=== PATIENT | male | born 1975 | race Caucasian/White ===

== ENCOUNTER 2021-01-29 10:01 | Emergency (ER) | payer MEDICARE, MEDICAID ==
[2021-01-29] MEDS ORDERED: diphenhydrAMINE 50 MG/ML SDV IVPUSH ONE (10:19)
[2021-01-29] MEDS ORDERED: methylPREDNISolone Sodium Succinate 125 MG/2 ML SDV IVPUSH ONE (10:19)
--- NOTE | 2021-01-29 10:27 | EDM.PDOC ---
ED HPI GENERAL MEDICAL PROBLEM - General Stated Complaint: CHEST PAIN Time Seen by Provider: 01/29/21 10:05 Source of Information: Reports: Patient History Limitations: Reports: No Limitations - History of Present Illness INITIAL COMMENTS - FREE TEXT/NARRATIVE: c/o sob and cp and tingling and hyperventilation pt states he slept poorly last night, as is usual for him. He did knee exercises in bed for his L knee surgery. He was going to get up when he felt sob, anxious, took several DPs, felt sob and then he didn't. Palms and soles were sweaty, he was lightheaded. He did not report cp to me altho then acknowledged he had some cp that is now almost gone. he said he just wanted his gfriend to give him a hug, that he calmed down when EMS arrived onset 1h [employer], EMS gave him ASA and NTG lives in [place] since Aug with gfriend and 3 of his 5 children, not working, gfriend at bedside, pt's mother lives in [place] pt [place] and worked [place] near [facility], lived in 5 loc ations in [place] "depending on where the work was" denies prior CV/pul problems uses medical THC, smokes 0.5 ppd, no alc/street drugs, drinks 3-9 Mtn Dews daily PMH: includes bipolar and psychosis meds: pt brings bottles in with him, says he has not missed a dose in years pt told RN that his entire chest hurt, felt crushing, not happened previously - Related Data Allergies Allergy/AdvReac Type Severity Reaction Status Date / Time No Known Allergies Allergy Verified 01/29/21 12:37 Home Meds: Home Meds ARIPiprazole [Aripiprazole] 1 cap PO DAILY 01/29/21 [History] LORazepam [Ativan] 1 tab PO DAILY 01/29/21 [History] [place] Carbonate 1 cap PO BEDTIME 01/29/21 [History] [place] Carbonate 3 cap PO BEDTIME 01/29/21 [History] OLANZapine [Olanzapine] 5 mg PO BEDTIME 01/29/21 [History] Omeprazole 1 tab PO DAILY 01/29/21 [History] Propranolol [Inderal] 1 - 2 tab PO DAILY PRN 01/29/21 [History] diazePAM [Diazepam] 01/29/21 [History] hydrOXYzine pamoate [Hydroxyzine Pamoate] 1 cap PO Q6HR PRN 01/29/21 [History] traMADol HCl [Tramadol HCl] 1 tab PO Q6HR PRN 01/29/21 [History] ED ROS GENERAL - Review of Systems Review Of Systems: See Below Constitutional: Reports: No Symptoms HEENT: Reports: No Symptoms Respiratory: Reports: Shortness of Breath Cardiovascular: Reports: Chest Pain Endocrine: Reports: No Symptoms GI/Abdominal: Reports: No Symptoms : Reports: No Symptoms Musculoskeletal: Reports: No Symptoms Skin: Reports: No Symptoms Neurological: Reports: Dizziness, Tingling. Denies: Headache Psychiatric: Reports: No Symptoms Hematologic/Lymphatic: Reports: No Symptoms Immunologic: Reports: No Symptoms ED EXAM, GENERAL - Physical Exam Exam: See Below Exam Limited By: No Limitations General Appearance: Alert, WD/WN, No Apparent Distress Nose: Normal Inspection Throat/Mouth: Normal Voice, No Airway Compromise Head: Atraumatic, Normocephalic Neck: Normal Inspection, Supple, Non-Tender, Full Range of Motion. No: Lymphadenopathy (R), Lymphadenopathy (L) Respiratory/Chest: No Respiratory Distress, Lungs Clear, Normal Breath Sounds, Chest Non-Tender Cardiovascular: Regular Rate, Rhythm, No Edema, No Gallop, No Murmur GI/Abdominal: Soft, Non-Tender, No Distention Back Exam: Normal Inspection, Full Range of Motion, NT Extremities: Normal Inspection, Normal Range of Motion, Non-Tender, No Pedal Edema Neurological: Alert, Oriented, CN II-XII Intact, Normal Cognition, No Motor/Sensory Deficits Psychiatric: Anxious Skin Exam: Other (at previous locations of EMS chest stickers there are mild elevated geographic red areas) Lymphatic: No Adenopathy Course - Vital Signs Last Recorded V/S: Last Vital Signs Temp 36.9 C 01/29/21 10:05 Pulse 74 01/29/21 10:05 Resp 20 01/29/21 10:05 BP 116/90 01/29/21 10:05 Pulse Ox 97 01/29/21 10:05 - Orders/Labs/Meds Orders: Active Orders 24 hr Category Date Time Status EKG Documentation Completion [RC] ASDIRECTED Care 01/29/21 10:10 Active EKG 12 Lead [EK] Routine Ther 01/29/21 10:09 Ordered Labs: Laboratory Tests 01/29/21 01/29/21 01/29/21 Range/Units 10:20 10:20 10:20 WBC 10.3 H (3.2-10.1) x10-3/uL RBC 5.33 (3.90-5.90) x10(6)uL Hgb 16.0 (12.9-17.7) g/dL Hct 48.3 (38.3-50.1) % MCV 90.6 (80.8-98.7) fL MCH 29.9 (27.0-33.3) pg MCHC 33.1 (28.7-35.3) g/dL RDW 13.5 (12.4-15.0) % Plt Count 236 (117-477) x10(3)uL MPV 8.8 (6.7-11.0) fL Neut % (Auto) 70.9 (40.3-71.8) % Lymph % (Auto) 18.9 (15.8-45.3) % Noble % (Auto) 6.4 (5.5-15.2) % Eos % (Auto) 2.7 (0.1-6.8) % Baso % (Auto) 1.1 (0.3-3.8) % Neut # (Auto) 7.3 H (1.7-6.9) x10-3/uL Lymph # (Auto) 2.0 (0.5-4.5) x10-3/uL Noble # (Auto) 0.7 (0.0-1.2) x10-3/uL Eos # (Auto) 0.3 (0.0-0.6) x10-3/uL Baso # (Auto) 0.1 (0.0-0.3) x10-3/uL D-Dimer, Quantitative 0.50 (0.0-0.59) mg/LFEU Sodium 140 (135-145) mmol/L Potassium 4.3 (3.5-5.3) mmol/L Chloride 104 (100-110) mmol/L Carbon Dioxide 28 (21-32) mmol/L BUN 11 (7-18) mg/dL Creatinine 0.9 (0.70-1.30) mg/dL Est Cr Clr Drug Dosing TNP Estimated GFR (MDRD) > 60 (>60) BUN/Creatinine Ratio 12.2 (9-20) Glucose 112 (80-116) mg/dL Calcium 8.9 (8.6-10.2) mg/dL Total Bilirubin 0.3 (0.1-1.3) mg/dL AST 21 (5-25) IU/L ALT 37 H (12-36) U/L Alkaline Phosphatase 86 (56-112) IU/L Troponin I (4.0-60.3) pg/mL C-Reactive Protein (0.5-0.9) mg/dL Total Protein 7.1 (6.0-8.0) g/dL Albumin 3.8 (3.5-5.2) g/dL Globulin 3.3 g/dL Albumin/Globulin Ratio 1.2 Urine Color (YELLOW) Urine Appearance (CLEAR) Urine pH (5.0-6.5) Ur Specific [place] (1.010-1.025) Urine Protein (NEGATIVE) mg/dL Urine Glucose (UA) (NORMAL) mg/dL Urine Ketones (NEGATIVE) mg/dL Urine Occult Blood (NEGATIVE) Urine Nitrite (NEGATIVE) Urine Bilirubin (NEGATIVE) Urine Urobilinogen (NEGATIVE) mg/dL Ur Leukocyte Esterase (NEGATIVE) Urine WBC (0-5) Ur Squamous Epith Cells (NS,R,O) Urine Bacteria (NS) SARS-CoV-2 RNA (SAMMY) (NEGATIVE) 01/29/21 01/29/21 01/29/21 Range/Units 10:20 10:45 11:25 WBC (3.2-10.1) x10-3/uL RBC (3.90-5.90) x10(6)uL Hgb (12.9-17.7) g/dL Hct (38.3-50.1) % MCV (80.8-98.7) fL MCH (27.0-33.3) pg MCHC (28.7-35.3) g/dL RDW (12.4-15.0) % Plt Count (117-477) x10(3)uL MPV (6.7-11.0) fL Neut % (Auto) (40.3-71.8) % Lymph % (Auto) (15.8-45.3) % Noble % (Auto) (5.5-15.2) % Eos % (Auto) (0.1-6.8) % Baso % (Auto) (0.3-3.8) % Neut # (Auto) (1.7-6.9) x10-3/uL Lymph # (Auto) (0.5-4.5) x10-3/uL Noble # (Auto) (0.0-1.2) x10-3/uL Eos # (Auto) (0.0-0.6) x10-3/uL Baso # (Auto) (0.0-0.3) x10-3/uL D-Dimer, Quantitative (0.0-0.59) mg/LFEU Sodium (135-145) mmol/L Potassium (3.5-5.3) mmol/L Chloride (100-110) mmol/L Carbon Dioxide (21-32) mmol/L BUN (7-18) mg/dL Creatinine (0.70-1.30) mg/dL Est Cr Clr Drug Dosing Estimated GFR (MDRD) (>60) BUN/Creatinine Ratio (9-20) Glucose (80-116) mg/dL Calcium (8.6-10.2) mg/dL Total Bilirubin (0.1-1.3) mg/dL AST (5-25) IU/L ALT (12-36) U/L Alkaline Phosphatase (56-112) IU/L Troponin I 6.6 (4.0-60.3) pg/mL C-Reactive Protein 0.7 (0.5-0.9) mg/dL Total Protein (6.0-8.0) g/dL Albumin (3.5-5.2) g/dL Globulin g/dL Albumin/Globulin Ratio Urine Color Yellow (YELLOW) Urine Appearance Slightly cloudy (CLEAR) Urine pH 6.5 (5.0-6.5) Ur Specific [place] 1.010 (1.010-1.025) Urine Protein Negative (NEGATIVE) mg/dL Urine Glucose (UA) Normal (NORMAL) mg/dL Urine Ketones Negative (NEGATIVE) mg/dL Urine Occult Blood Negative (NEGATIVE) Urine Nitrite Negative (NEGATIVE) Urine Bilirubin Negative (NEGATIVE) Urine Urobilinogen Normal (NEGATIVE) mg/dL Ur Leukocyte Esterase Negative (NEGATIVE) Urine WBC 0-5 (0-5) Ur Squamous Epith Cells Few H (NS,R,O) Urine Bacteria Few H (NS) SARS-CoV-2 RNA (SAMMY) Negative (NEGATIVE) 01/29/21 Range/Units 12:25 WBC (3.2-10.1) x10-3/uL RBC (3.90-5.90) x10(6)uL Hgb (12.9-17.7) g/dL Hct (38.3-50.1) % MCV (80.8-98.7) fL MCH (27.0-33.3) pg MCHC (28.7-35.3) g/dL RDW (12.4-15.0) % Plt Count (117-477) x10(3)uL MPV (6.7-11.0) fL Neut % (Auto) (40.3-71.8) % Lymph % (Auto) (15.8-45.3) % Noble % (Auto) (5.5-15.2) % Eos % (Auto) (0.1-6.8) % Baso % (Auto) (0.3-3.8) % Neut # (Auto) (1.7-6.9) x10-3/uL Lymph # (Auto) (0.5-4.5) x10-3/uL Noble # (Auto) (0.0-1.2) x10-3/uL Eos # (Auto) (0.0-0.6) x10-3/uL Baso # (Auto) (0.0-0.3) x10-3/uL D-Dimer, Quantitative (0.0-0.59) mg/LFEU Sodium (135-145) mmol/L Potassium (3.5-5.3) mmol/L Chloride (100-110) mmol/L Carbon Dioxide (21-32) mmol/L BUN (7-18) mg/dL Creatinine (0.70-1.30) mg/dL Est Cr Clr Drug Dosing Estimated GFR (MDRD) (>60) BUN/Creatinine Ratio (9-20) Glucose (80-116) mg/dL Calcium (8.6-10.2) mg/dL Total Bilirubin (0.1-1.3) mg/dL AST (5-25) IU/L ALT (12-36) U/L Alkaline Phosphatase (56-112) IU/L Troponin I 5.8 (4.0-60.3) pg/mL C-Reactive Protein (0.5-0.9) mg/dL Total Protein (6.0-8.0) g/dL Albumin (3.5-5.2) g/dL Globulin g/dL Albumin/Globulin Ratio Urine Color (YELLOW) Urine Appearance (CLEAR) Urine pH (5.0-6.5) Ur Specific [place] (1.010-1.025) Urine Protein (NEGATIVE) mg/dL Urine Glucose (UA) (NORMAL) mg/dL Urine Ketones (NEGATIVE) mg/dL Urine Occult Blood (NEGATIVE) Urine Nitrite (NEGATIVE) Urine Bilirubin (NEGATIVE) Urine Urobilinogen (NEGATIVE) mg/dL Ur Leukocyte Esterase (NEGATIVE) Urine WBC (0-5) Ur Squamous Epith Cells (NS,R,O) Urine Bacteria (NS) SARS-CoV-2 RNA (SAMMY) (NEGATIVE) Meds: Medications Discontinued Medications Generic Name Dose Route Start Last Admin Trade Name Martinq PRN Reason Stop Dose Admin Diphenhydramine HCl 25 mg 01/29/21 10:19 01/29/21 11:06 Benadryl IVPUSH 01/29/21 10:20 25 mg ONETIME ONE Administration Methylprednisolone Sodium Succinate 125 mg 01/29/21 10:19 01/29/21 11:06 Solu-Medrol IVPUSH 01/29/21 10:20 125 mg ONETIME ONE Administration - Re-Assessments/Exams Free Text/Narrative Re-Assessment/Exam: 01/29/21 12:53 CxR 2v neg on prelim ED read all labs neg including repeat trop x 2 COVID neg no evidence of infection no evidence of pul/CV concerns pt anxious to leave sxs free at time of d/c he has 3 doctor who he sees regularly, including for psychological reasons he did eat lunch prior to d/c Departure - Departure Time of Disposition: 12:52 Disposition: Refer to Observation Condition: Good Clinical Impression: Hyperventilation syndrome, Nonspecific chest pain Instructions: Nonspecific Chest Pain, Adult Referrals: PCP,Not In Area [Primary Care Provider] - Forms: ED Department Discharge Additional Instructions: Continue current meds. See your primary care doctor next week if you do not already have an appointment. Return to ED if you are feeling worse. Sepsis Event Note (ED) - Focused Exam Vital Signs: Vital Signs Temp Pulse Resp BP Pulse Ox 01/29/21 10:05 36.9 C 74 20 116/90 97 - My Orders Last 24 Hours: My Active Orders 01/29/21 10:09 EKG 12 Lead [EK] Routine 01/29/21 10:10 EKG Documentation Completion [RC] ASDIRECTED - Assessment/Plan Last 24 Hours: My Active Orders 01/29/21 10:09 EKG 12 Lead [EK] Routine 01/29/21 10:10 EKG Documentation Completion [RC] ASDIRECTED
[2021-01-29 12:14] VITALS: BP 116/90; PULSE 74
--- NOTE | 2021-01-29 12:15 | CR ---
INDICATION: Generalized chest pain. CHEST, TWO VIEWS: Two PA views and a lateral view of the chest were obtained 01/29/21 - no comparisons. The heart appeared normal in size and shape. Mediastinum and bony thorax appear essentially unremarkable (there is noted a very minimal dextroconvex scoliosis of the thoracic spine). Overlying EKG leads are noted. An active infiltrate or effusion was not identified. IMPRESSION: No acute process. MTDD
== END 2021-01-29 13:00 | disposition home or self-care (01) ==
LOC: FB.ED 10:01
DX: F45.8 Other somatoform disorders (principal); Z79.899 Other long term (current) drug therapy; Z20.822 Contact with and (suspected) exposure to COVID-19
CPT/HCPCS: 36415; 71046; 80053; 81001; 84484; 85025; 85379; 86140; 93005; 96374; 96375; 99285-25; J1200; J2930; U0002